=== PATIENT | male | born 1985 | race Caucasian/White ===

== ENCOUNTER 2018-01-26 10:17 | Outpatient (RCR) | payer OTHER | END 2018-04-07 | disposition home or self-care (01) | LOC: WSOH | DX: M54.5 Low back pain (principal); M25.562 Pain in left knee; W11.XXXA Fall on and from ladder, initial encounter; Y93.H3 Activity, building and construction; Y92.59 Other trade areas as the place of occurrence of the external cause; Y99.0 Civilian activity done for income or pay ==